=== PATIENT | male | born 1955 | race Caucasian/White ===

== ENCOUNTER → 2016-07-03 | Outpatient (CLI) | payer OTHER ==
--- NOTE | 2016-07-03 15:53 | DI ---
XR KNEE 3 VW,07/03/2016 1:20 PM: Clinical History: Right anterior knee pain. Previous Exam: None at this facility. Findings: 3 views of the right knee are obtained, and demonstrate anatomic alignment without fractures. The gordo rounding soft tissues are unremarkable. Impression: Normal right knee.
== END ==
LOC: MOB RAD 13:21
PROVIDERS: ATTEND Physician Assistant
DX: M25.561 Pain in right knee (principal); X50.0XXA Overexertion from strenuous movement or load, initial encounter
CPT/HCPCS: 73562

== ENCOUNTER → 2016-11-30 | Outpatient (CLI) | payer OTHER ==
[2016-11-30 15:28] LABS: FREE T4 (FREE THYROXINE) 1.36 ng/dL (0.93-1.71)
== END ==
LOC: MOB LAB 11:41
PROVIDERS: ATTEND Family Medicine
DX: E03.9 Hypothyroidism, unspecified (principal)
CPT/HCPCS: 36415; 84439; 84443

== ENCOUNTER → 2016-12-25 | Outpatient (CLI) | payer OTHER ==
--- NOTE | 2016-12-25 14:18 | EKG ---
[address] [address] Measurements Intervals [place] Rate: 69 P: 65 CT: 161 QRS: -30 QRSD: 105 T: 74 QT: 405 QTc: 424 Interpretive Statements SINUS RHYTHM LEFT AXIS DEVIATION INCOMPLETE RIGHT BUNDLE BRANCH BLOCK NONSPECIFIC T-WAVE ABNORMALITY Compared to ECG 04/15/2015 13:36:10 Incomplete right bundle-branch block now present T-wave abnormality still present Electronically Signed On 12-26-16 10:50:55 MDT by Pa Powell [email or web address]
[2016-12-25 15:48] LABS: HEMATOCRIT 42.8 % (42.0-52.0); HEMOGLOBIN 15.1 g/dL (14.0-18.0); MEAN CORPUSCULAR HEMOGLOBIN 29.8 PG (27-31); MEAN CORPUSCULAR HGB CONC 35.3 g/dL (33-37); MEAN CORPUSCULAR VOLUME 84.4 FL (80-90); MEAN PLATELET VOLUME 8.8 FL (7.4-12.2); RED BLOOD COUNT 5.07 10^6/uL (4.70-6.10)
[2016-12-25 15:56] LABS: BILIRUBIN,URINE NEGATIVE (NEG); CLARITY,URINE CLEAR (CLEAR); COLOR,URINE YELLOW; GLUCOSE, URINE (UA) NEGATIVE (NEG); NITRATE,URINE NEGATIVE (NEG); OCCULT BLOOD,URINE NEGATIVE (NEG); PROTEIN,URINE NEGATIVE (NEG); UROBILINOGEN,URINE 0.2 EU/dL (0.2)
[2016-12-25 16:10] LABS: BLOOD UREA NITROGEN 12 mg/dL (7-22); CALCIUM 9.7 mg/dL (8.7-10.7); EST GLOMERULAR FILTRATION > 60 (>60 ml/min/1.73m(2)); SERUM ALBUMIN 4.3 g/dL (3.5-4.8)
[2016-12-25 16:20] LABS: URINE SAMPLE TYPE CLEAN CATCH URINE
[2016-12-25 17:05] LABS: FREE T4 (FREE THYROXINE) 1.49 ng/dL (0.93-1.71)
== END ==
LOC: MOB LAB 13:33
PROVIDERS: ATTEND Family Medicine
DX: Z01.812 Encounter for preprocedural laboratory examination (principal); Z01.810 Encounter for preprocedural cardiovascular examination; M25.562 Pain in left knee; E03.9 Hypothyroidism, unspecified; I45.10 Unspecified right bundle-branch block
CPT/HCPCS: 36415; 80053; 81003; 84439; 84443; 85027; 86850; 86900; 86901; 87641; 93005; 93010